=== PATIENT | male | born 1950 | race Two or more races ===

== ENCOUNTER → 2016-10-06 | Outpatient (CLI) | payer OTHER ==
--- NOTE | 2016-10-06 14:06 | KCIC ---
MR LUMBAR SPINE HISTORY:Reason For StudyReason: LEFT LEG PAIN DDD / Spl. Instructions: Ordered without [facility]. / History: Progressing LBP, fell. Pain in left leg and right leg at times. COMPARISON: None Technique: Sagittal T2, sagittal STIR, and sagittal T1-weighted images were obtained. Additional axial T1 and T2 weighted imaging was also performed. FINDINGS: There is very subtle retrolisthesis of L5 on S1. Alignment is otherwise within normal limits. No compression fracture or malalignment. Bone marrow signal is normal. The conus terminates normally at the level of L1. Visualized intra-abdominal contents are within normal limits. At L5-S1 there is mild disc height loss and a inferiorly migrating disc extrusion with edema in the posterior aspect of the disc space. The right S1 nerve is pinched between the disc extrusion and presence of a synovial cyst on the right. Correlate for right S1 radiculopathy symptoms. The right-sided synovial cyst measures 1.5 by 0.9 centimeters in size. The cyst also results in severe narrowing of the spinal canal which could result in left S1 radiculopathy symptoms as well. At L4-L5 there is mild disc height loss and a broad-based disc protrusion causes mild central spinal stenosis and moderate bilateral foraminal stenosis worse on the left. A small synovial cyst is noted on the left which is exacerbates this narrowing. Correlate for left L4 radiculopathy symptoms. At L3-L4 there is no spinal stenosis. Impression: - At the level L5-S1 there is a inferiorly migrating disc extrusion. There is also a right-sided synovial cyst. The combination of these 2 lesions results in significant mass effect upon the right S1 nerve and severe narrowing of the spinal canal which could cause left S1 nerve symptoms as well. Correlate for bilateral S1 radiculopathy symptoms. - At L4-L5 there is moderate bilateral foraminal stenosis worse on the left secondary to a broad-based disc protrusion and a small synovial cyst in the left foramina. Correlate for left L4 radiculopathy symptoms presumably worse on the left. Electronically signed by: Robert Keating (Oct 06, 2016 14:05:07)
== END | disposition home or self-care (01) ==
LOC: KCIC MRI 10:51
DX: M51.36 Other intervertebral disc degeneration, lumbar region (principal)
CPT/HCPCS: 72148

== ENCOUNTER → 2016-10-08 | Outpatient (CLI) | payer OTHER ==
--- NOTE | 2016-10-08 13:59 | KCIC ---
PROCEDURE MR of the left tibia and fibula HISTORY Left lower leg pain for 2 months. Injury 2 weeks ago. Cramping. TECHNIQUE Routine multiplanar sequences are obtained. COMPARISON None FINDINGS No evidence of bone lesion or acute fracture. No evidence of periosteal reaction. Mild soft tissue edema, particularly towards the distal aspect of the tibia and fibula. No organized fluid collection is seen. There is intramuscular edema within the distal flexor hallucis longus muscle. There is milder intramuscular edema within the anterior tibial and extensor muscles. IMPRESSION Mild edema signal involving anterior tibial and extensor muscles, and the distal flexor hallucis longus muscle. Consider traumatic injury or nonspecific myositis. Electronically signed by: Edgar Choe MD (Oct 08, 2016 13:58:19)
== END | disposition home or self-care (01) ==
LOC: KCIC MRI 12:19
PROVIDERS: ATTEND Nurse Practitioner Adult Health
DX: M79.605 Pain in left leg (principal); R60.0 Localized edema
CPT/HCPCS: 73718